=== PATIENT | male | born 1970 | race Caucasian/White ===

== ENCOUNTER 2024-10-05 13:01 | Outpatient (CLI) | payer BC, SELFPAY ==
--- NOTE | 2024-10-05 14:03 | ECG_ITS ---
Test Date: 2024-10-05 14:26:59 Measurements Intervals [place] Rate: 78 P: 63 AL: 151 QRS: 53 QRSD: 106 T: 52 QT: 359 QTc: 411 Interpretive Statements SINUS RHYTHM WARNING: DATA QUALITY MAY AFFECT INTERPRETATION No previous ECG available for comparison Electronically Signed On 10-05-2024 15:18:59 [employer] by Juan Cotton M.D.
[2024-10-05 14:38] LABS: Hematocrit 44.4 % (42.0-52.0); Mean Corpuscular Hemoglobin 32.6 pg (26-34); Mean Corpuscular Volume 90.4 fl (80-100); Mean Platelet Volume 9.6 fl (7.4-10.4); Platelet Count Result 192 k/mm3 (150-375); Red Blood Count 4.91 M/mm3 (4.6-6.20); Red Cell Distribution Width 12.1 % (11.5-14.5); White Blood Count 5.7 K/mm3 (4.5-10.0)
[2024-10-05 14:42] LABS: Add Urine Microscopic? YES; Appearance Urine Clear (Clear); Bacteria Urine None Seen /hpf; Bilirubin Urine Negative (Negative); Blood Urine Negative (Negative); Color Urine Yellow (Yellow); Glucose Urine UA 3+ mg/dL (Negative); Ketones Urine 1+ mg/dL (Negative); Leukocyte Esterase Ur Negative LEU/UL (Negative); Nitrate Urine Negative (Negative); Non Pathogenic Casts 0-2; Protein Urine Trace mg/dL (Negative); RBC Urine 0-2 /hpf (0-2); Specific Grav Ur 1.035 (1.001-1.035); Squamous Epithelial Cell Urine None Seen /hpf (Few); Urobilinogen Urine 0.2 mg/dL (<2.0); WBC Urine 0-5 /hpf (0-3)
[2024-10-05 14:51] LABS: INR 0.9
[2024-10-05 14:52] LABS: Partial Thromboplastin Time 25.4 Seconds (22.3-36.8)
[2024-10-05 14:57] LABS: Anion Gap 8 mmol/L (4-12); Blood Urea Nitrogen 18 mg/dL (9-20); Calcium 8.9 mg/dL (8.4-10.2); Carbon Dioxide 29 mmol/L (22-30); Chloride 98 mmol/L (98-107); Estimated Glomerular Filt Rate > 60; Glucose 248 mg/dL (65-110); Sodium 135 mmol/L (137-145)
[2024-10-05 17:26] LABS: Hemoglobin A1C 9.3 % (<5.7)
== END 2024-10-05 13:02 | disposition home or self-care (01) ==
PROVIDERS: PCP Family Medicine; Visit Provider Neurological Surgery
DX: Z01.818 Encounter for other preprocedural examination (principal); E11.9 Type 2 diabetes mellitus without complications; M50.20 Other cervical disc displacement, unspecified cervical region
CPT/HCPCS: 36415; 80048; 81001; 83036; 85027; 85610; 85730; 93005